=== PATIENT | male | born 1995 | race Caucasian/White ===

== ENCOUNTER 2016-07-26 12:18 | Emergency (ER) | payer OTHER ==
[~2016-07-26] VITALS: Ht 188 cm; Wt 87.1 kg
[~2016-07-26 12:18] MED LIST: DAPSONE100 MG PO; HYDROCODONE-AP1 EAC6 PO; HYDROXYCHLOROQ200 M1 PO; MULTIVITAMINS1 EAC7 PO; [UNRECOGNIZED DRUG - OTHER] PO; [UNRECOGNIZED DRUG - REMARK] PO
[2016-07-26] MEDS ORDERED: KEFLEX500 MG PO (15:39)
== END 2016-07-26 15:47 | disposition home or self-care (01) ==
LOC: ER 12:18
DX: S01.81XA Laceration without foreign body of other part of head, initial encounter (principal); Z90.89 Acquired absence of other organs; Z77.22 Contact with and (suspected) exposure to environmental tobacco smoke (acute) (chronic); W22.8XXA Striking against or struck by other objects, initial encounter; Y93.89 Activity, other specified; Y92.89 Other specified places as the place of occurrence of the external cause; Y99.8 Other external cause status